=== PATIENT | female | born 1950 | race Caucasian/White ===

== ENCOUNTER 2016-08-29 07:08 | Day surgery (SDC) | payer MEDICARE, OTHER ==
[~2016-08-29] VITALS: Ht 160 cm; Wt 65.3 kg
[~2016-08-29 07:08] MED LIST: ASPI-956 PO; CHOL100094 PO; CYCL10TA9 PO; L GA1CAP PO; MULT-1018 PO; OMEG-38 PO
[2016-08-29 07:31] VITALS: BP 141/88; PULSE 97; RESP 14; O2SAT 99
[2016-08-29] MEDS ORDERED: 0.9% Sodium Chloride 1,000 ML ONE (07:48)
[2016-08-29] MEDS ORDERED: 0.9% Sodium Chloride 1,000 ML IV ONE (07:48)
[2016-08-29] MEDS ORDERED: Sodium Chloride LOK Flush 10 mL Syringe IV PRN (07:50)
[2016-08-29] MEDS ORDERED: fentaNYL-PF 50 mCg/mL 2 mL Inj IVPUSH PRN (07:50)
[2016-08-29] MEDS ORDERED: 0.9% Sodium Chloride 1,000 ML IV PRN (07:50)
--- NOTE | 2016-08-29 08:23 | PCM.ENDCOL ---
Colonoscopy Date of Service: Aug 29, 2016 Physician Troy Celis MD Indication for Procedure Screening colon cancer Post Procedure Dx & Findings: Hemorrhoids diverticuli Procedure Colonoscopy Prep adequate Cecum 7 minutes Withdrawal 11 minutes PROCEDURE IN DETAIL: After unremarkable rectal examination Olympus video colonoscope was inserted into patient's anal canal was advanced to cecum. Landmarks identified including the risk above end up in this orifice. Scope further advanced to the terminal ileum which showed normal villous structures without any ulcers masses or erosions. Scope was withdrawn systematically. The mucosa of the cecum, ascending, transverse, descending, sigmoid, rectal mucosa lined with whitish, pink, smooth, glistening, normal-appearing mucosa, normal fine branching, underlying vascularity, normal haustra. The patient tolerated procedure and was transported to observation area. In the sigmoid colon, there was numerous small to medium sized diverticuli. In the rectum retroflexion was done which showed mild hemorrhoids and anal canal was inspected carefully on the way out and mild hemorrhoids noted. Impression Diverticuli Hemorrhoids Recommendation Repeat colonoscopy in 10 years. Diverticular diet Presedation Assessment Risks and Benefits Informed consent was obtained from the patient after all risks and benefits including but not limited to drug reaction, infection, pain, bleeding, perforation, as well as alternatives were discussed. Patient monitoring Continuous pulse oximetry, cardiac monitoring, blood pressure monitoring, IV access, and oxygen at 2L per nasal cannula. Periprocedural Fentanyl: Fentanyl 75mcg Incrementally Midazolam: Midazolam 3mg Incrementally Complications There were no periprocedural complications identified. Post Procedure Plan Post Procedure Recommendations 1. Restrict activities today. 2. Resume normal activities in the morning. 3. Resume medications. 4. Patient informed of normal post procedure side effects as bloating, drowsiness, blood streaking in the stool. 5. average risk CRCS. If colon polyps come back as: -Hyperplastic- can repeat colonoscopy in 10 years -Tubular adenoma- repeat colonoscopy in 5 years -Tubulovillous/villous adenoma- repeat colonoscopy in 3 years -If any dysplasia- return to clinic as soon as possible 6. Please don't hesitate to call me with any questions. Troy Celis MD Aug 29, 2016 08:23
[2016-08-29 08:25] VITALS: BP 99/56; PULSE 84; RESP 16; O2SAT 97
[2016-08-29 08:35] VITALS: BP 93/53; PULSE 75; RESP 16; O2SAT 95
== END 2016-08-29 23:59 | disposition home or self-care (01) ==
LOC: END 07:08
PROVIDERS: ATTEND Internal Medicine
DX: Z12.11 Encounter for screening for malignant neoplasm of colon (principal); K57.30 Diverticulosis of large intestine without perforation or abscess without bleeding; K64.8 Other hemorrhoids; Z79.82 Long term (current) use of aspirin; Z79.899 Other long term (current) drug therapy
CPT/HCPCS: 99153; G0121; G0500; J2250; J3010; J7030